=== PATIENT | male | born 1995 | race African-American/Black ===

== ENCOUNTER 2019-08-31 20:01 | Emergency (ER) | payer MEDICAID ==
[~2019-08-31] VITALS: Ht 198.1 cm; Wt 82.5 kg
[~2019-08-31 20:01] MED LIST: NONE REPORTED
[2019-09-01] MEDS ORDERED: IBUPROFEN 600MG TABLET PO ONE (00:45)
[2019-09-01 03:57] VITALS: BP 112/70
== END 2019-09-01 03:57 | disposition home or self-care (01) ==
LOC: ER 20:01
DX: M79.641 Pain in right hand (principal); M79.671 Pain in right foot; J45.909 Unspecified asthma, uncomplicated; X58.XXXA Exposure to other specified factors, initial encounter; Y93.89 Activity, other specified; Y92.9 Unspecified place or not applicable
CPT/HCPCS: 73130; 73630; 99283

== ENCOUNTER 2019-09-19 10:32 | Emergency (ER) | payer MEDICAID | END 2019-09-19 11:33 | disposition left against medical advice (07) | LOC: ER 10:32 | DX: Z53.21 Procedure and treatment not carried out due to patient leaving prior to being seen by health care provider (principal) ==

== ENCOUNTER 2025-06-16 05:48 | Emergency (ER) | payer SELFPAY ==
[~2025-06-16] VITALS: Ht 200.7 cm; Wt 95.0 kg
[2025-06-16 05:57] VITALS: O2SAT 98
[2025-06-16] MEDS: ACETAMINOPHEN 325MG TABLET PO ONE (06:14)
[2025-06-16 07:00] VITALS: BP 108/66; PULSE 66; RESP 18; TEMP 36.7; O2SAT 99
== END 2025-06-16 07:03 | disposition home or self-care (01) ==
LOC: ER 05:48
DX: S90.112A Contusion of left great toe without damage to nail, initial encounter (principal); F12.90 Cannabis use, unspecified, uncomplicated; J45.909 Unspecified asthma, uncomplicated; X58.XXXA Exposure to other specified factors, initial encounter; Y93.89 Activity, other specified; Y92.89 Other specified places as the place of occurrence of the external cause; Y99.8 Other external cause status
CPT/HCPCS: 73630; 99283